=== PATIENT | female | born 1970 | race Asian ===

== ENCOUNTER 2018-05-31 14:21 | Outpatient (CLI) | payer BC | END 2018-05-31 22:53 | disposition home or self-care (01) | LOC: US 14:21 | DX: R10.84 Generalized abdominal pain (principal) ==

== ENCOUNTER 2020-04-03 05:55 | Emergency (ER) | payer BC | END 2020-04-03 07:03 | disposition home or self-care (01) | LOC: ED 05:55 | DX: R52 Pain, unspecified (principal) ==

== ENCOUNTER 2020-08-18 00:19 | Emergency (ER) | payer BC ==
[~2020-08-18] VITALS: Ht 162.6 cm; Wt 116.1 kg
[2020-08-18 02:35] LABS: PLATELET COUNT 200 K/uL (152-353)
[2020-08-18 03:11] LABS: POTASSIUM 4.2 mmol/L (3.6-5.2)
[2020-08-18 03:55] VITALS: BP 139/88; TEMP 98.2
== END 2020-08-18 03:55 | disposition home or self-care (01) ==
LOC: ED 00:19
PROVIDERS: Hospitalist
DX: J02.0 Streptococcal pharyngitis (principal); E11.65 Type 2 diabetes mellitus with hyperglycemia
CPT/HCPCS: 80048; 85027; 87502; 87651; 96372; 99283; J0696; J1815

== ENCOUNTER 2021-07-01 08:25 | Outpatient (CLI) | payer BC ==
[2021-07-01 09:08] LABS: PLATELET COUNT 218 K/uL (152-353)
[2021-07-01 09:17] LABS: POTASSIUM 3.7 mmol/L (3.6-5.2); SODIUM 139 mmol/L (136-145)
== END 2021-07-01 19:35 | disposition home or self-care (01) ==
LOC: LABW 08:25
PROVIDERS: ATTEND Nurse Practitioner Family
DX: R10.811 Right upper quadrant abdominal tenderness (principal); R10.9 Unspecified abdominal pain
CPT/HCPCS: 36415; 80053; 81000; 82150; 83690; 85027; 87086; 87088

== ENCOUNTER 2024-01-01 12:01 | Outpatient (CLI) | payer BC | END 2024-01-01 19:21 | disposition home or self-care (01) | LOC: RAD 12:01 | PROVIDERS: ATTEND Nurse Practitioner Family | DX: R05.9 Cough, unspecified (principal) ==